=== PATIENT | female | born 2000 | race Caucasian/White ===

== ENCOUNTER 2022-03-27 17:36 | Emergency (ER) | payer MEDICAID ==
[~2022-03-27] VITALS: Ht 172.7 cm; Wt 102.0 kg
--- NOTE | 2022-03-27 19:20 | ED EENT ---
History of Present Illness General Chief Complaint: Oral/Throat Problems Stated Complaint: RAW THROAT, BUMPS IN MOUTH Nursing Triage Note: C/O SORE THROAT FOR 3 DAYS. Source: patient Exam Limitations: no limitations History of Present Illness Date Seen by Provider: Mar 27, 2022 Time Seen by Provider: 19:06 Initial Comments 22-year-old female presents to the emergency department today for sore throat, cough. Symptoms present for 2 to 3 days now. She was seen at [facility] and tells me that "they did not do anything for me." She was told that this is likely a viral illness and ultimately discharged home. She is concerned that this might be strep. She was exposed at home with a couple different people having strep. Subjective fevers with chills but has not documented a temperature. She states the worst of her symptoms is her cough. It is relatively nonproductive but does sometimes have some phlegm. She does have rhinorrhea and nasal congestion with some ear pain, fullness and drainage as well. Allergies and Home Medications Patient Home Medication List Home Medication List Reviewed: Yes Review of Systems Review of Systems Constitutional: no symptoms reported Eyes: No Symptoms Reported Ears: Pain, Clear Discharge Nose: no symptoms reported Mouth: no symptoms reported Throat: pain Respiratory: cough Cardiovascular: no symptoms reported Gastrointestinal: no symptoms reported Musculoskeletal: no symptoms reported Skin: no symptoms reported Neurological: No Symptoms Reported Hematologic/Lymphatic: No Symptoms Reported Immunological/Allergic: no symptoms reported Past Yfadfdn-Gotdoa-Tifcds Hx Patient Social History Tobacco Use?: No Use of E-Cig and/or Vaping dev: No Substance use?: No Alcohol Use?: No Pt feels they are or have been: No Immunizations Up To Date Influenza Vaccine Up-to-Date: No; Not Current First/Initial COVID19 Vaccinat: DECLINED Family Medical History Reviewed Nursing Family Hx No Pertinent Family Hx Physical Exam Vital Signs Vital Signs - First Documented 03/27/22 18:51 Temp 36.7 Pulse 93 Resp 18 B/P (MAP) 140/90 (107) Pulse Ox 100 O2 Delivery Room Air Height, Weight, BMI Height: '" Weight: lbs. oz. kg; 34.00 BMI Method: General Appearance: WD/WN, no apparent distress Eyes: bilateral eye normal inspection, bilateral eye PERRL, bilateral eye EOMI Ears: bilateral ear auricle normal, bilateral ear canal normal, bilateral ear TM normal Nose: normal inspection Mouth/Throat: normal mouth inspection, pharynx normal Neck: non-tender, full range of motion, supple, normal inspection Cardiovascular: regular rate, rhythm, no edema, no murmur Respiratory: chest non-tender, lungs clear, normal breath sounds, no respiratory distress, no accessory muscle use Gastrointestinal: normal bowel sounds, non tender, soft, no organomegaly Neurologic/Psychiatric: alert, normal mood/affect, oriented x 3 Skin: normal color, warm/dry Progress/Results/Core Measures Results/Orders Lab Results Laboratory Tests Test 03/27/22 19:00 Range/Units Group A Streptococcus Screen NEGATIVE NEGATIVE My Orders Orders - GILMER SPICER DO Rapid Strep A Screen (03/27/22 18:57) Vital Signs/I&O 03/27/22 18:51 Temp 36.7 Pulse 93 Resp 18 B/P (MAP) 140/90 (107) Pulse Ox 100 O2 Delivery Room Air Blood Pressure Mean: 107 Departure Communication (Admissions) Patient is hemodynamically stable. She has no clinical evidence for peritonsillar abscess, retropharyngeal abscess, Ulysses's angina. Strep test is negative here. Symptoms consistent with viral etiology. We will give her a single dose of Decadron to be picked up in the morning so not to cause her insomnia. Recommended anti-inflammatory medicines and supportive care. She is discharged in stable condition. Impression Primary Impression: Sore throat Additional Impression: Viral illness Disposition: HOME, SELF-CARE Condition: Stable Departure-Patient Inst. Referrals: HERBERT JAMES MD (PCP/Family) Primary Care Physician Patient Instructions: Sore Throat, Adult (DC) Add. Discharge Instructions: Condition fluids at home, rest. Use anti-inflammatory medicine such as Motrin or Aleve as needed for pains. I have prescribed Decadron, a steroid medicine. The single dose should help you with your throat pain. I recommend you take pursing in the morning so does not keep you awake. Return to the emergency department for any severe concerns. Follow-up with your primary doctor for any nonemergent needs All discharge instructions reviewed with patient and/or family. Voiced understanding. Scripts Dexamethasone (Dexamethasone) 6 Mg Tablet 6 MG PO ONCE for 1 Day, #1 TAB Prov: GILMER SPICER DO 03/27/22 GILMER SPICER DO Mar 27, 2022 19:20
[2022-03-27] MEDS ORDERED: DEXA6TAB PO (19:55)
[2022-03-27 20:03] VITALS: BP 131/89
== END 2022-03-27 20:03 | disposition home or self-care (01) ==
LOC: ER 17:39
DX: J02.9 Acute pharyngitis, unspecified (principal); B34.9 Viral infection, unspecified; J34.89 Other specified disorders of nose and nasal sinuses; R09.81 Nasal congestion; Z28.310 Unvaccinated for COVID-19
CPT/HCPCS: 87430; 99283

== ENCOUNTER 2022-04-18 23:31 | Emergency (ER) | payer MEDICAID ==
[~2022-04-18 23:31] MED LIST: DEXA6TAB PO
--- NOTE | 2022-04-18 23:47 | ED Lower Extremity ---
General Stated Complaint: LEFT ANKLE PX,FALL Source: patient Exam Limitations: no limitations History of Present Illness Date Seen by Provider: Apr 18, 2022 Time Seen by Provider: 23:37 Initial Comments 22-year-old female presents for left ankle pain. She tripped down some stairs and twisted her knee couple days ago. She has persistent pain and swelling l ateral aspect of the left ankle. She has been able to bear weight but with significant pain. No other injuries. All other systems reviewed and negative except documented per HPI. Voice recognition software was used to help create this chart Allergies and Home Medications Patient Home Medication List Home Medication List Reviewed: Yes Dexamethasone (Dexamethasone) 6 Mg Tablet, 6 MG PO ONCE Prescribed by: GILMER SPICER MD on 03/27/221954 Review of Systems Constitutional: no symptoms reported Past Mzqujzj-Qhvlnj-Rgcaxt Hx Patient Social History Tobacco Use?: No Use of E-Cig and/or Vaping dev: No Substance use?: No Alcohol Use?: No Immunizations Up To Date First/Initial COVID19 Vaccinat: DECLINED Family Medical History Reviewed Nursing Family Hx No Pertinent Family Hx Physical Exam Vital Signs Vital Signs - First Documented 04/18/22 23:43 Temp 36.8 Pulse 86 Resp 20 B/P (MAP) 121/80 (94) Pulse Ox 99 O2 Delivery Room Air Capillary Refill : Height, Weight, BMI Height: '" Weight: lbs. oz. kg; 34.00 BMI Method: General Appearance: WD/WN, no apparent distress Cardiovascular: regular rate, rhythm, no murmur Respiratory: chest non-tender, lungs clear Legs: bilateral leg non-tender, bilateral leg normal inspection, bilateral leg normal range of motion Knees: bilateral knee non-tender, bilateral knee normal inspection, bilateral knee normal range of motion Ankles: left ankle swelling (Swelling tenderness lateral aspect of left ankle. Neurovascular motor and sensory intact. No proximal tenderness.) Feet: bilateral foot non-tender, bilateral foot normal inspection, bilateral foot normal range of motion Neurologic/Psychiatric: alert, oriented x 3 Skin: normal color, warm/dry Progress/Results/Core Measures Results/Orders My Orders Orders - GILMER SPICER DO Ankle, Left, 3 Views (04/18/22 23:37) Vital Signs/I&O 04/18/22 23:43 Temp 36.8 Pulse 86 Resp 20 B/P (MAP) 121/80 (94) Pulse Ox 99 O2 Delivery Room Air Departure Communication (Admissions) Patient is hemodynamically stable. My independent review of the x-rays show no acute fracture or dislocation. Likely ankle sprain. Conservative care with ice, Motrin and Tylenol and elevation. Impression Primary Impression: Left ankle sprain Qualified Codes: S93.402A - Sprain of unspecified ligament of left ankle, initial encounter Disposition: HOME, SELF-CARE Condition: Stable Departure-Patient Inst. Referrals: HERBERT JAMES MD (PCP/Family) Primary Care Physician Patient Instructions: Ankle Sprain ED Add. Discharge Instructions: We will eat as tolerated. And elevate the ankle when noted use. use anti- inflammatory medications as needed for pain. You may also use Tylenol. Return to the emergency department for any severe concerns. Follow-up with your primary doctor for any nonemergent needs. GILMER SPICER DO Apr 18, 2022 23:47
[2022-04-19 00:05] VITALS: BP 121/80
--- NOTE | 2022-04-19 05:48 | Diagnostic Imaging Report ---
Indication: Left ankle pain 3 views of the left ankle show no fracture, dislocation or other acute abnormalities. IMPRESSION: Negative left ankle Dictated by: Dictated on workstation # [id number]
== END 2022-04-19 00:05 | disposition home or self-care (01) ==
LOC: EDUNIT# 23:31 → ER 23:34
DX: S93.402A Sprain of unspecified ligament of left ankle, initial encounter (principal); W10.9XXA Fall (on) (from) unspecified stairs and steps, initial encounter; X50.1XXA Overexertion from prolonged static or awkward postures, initial encounter
CPT/HCPCS: 73610